=== PATIENT | female | born 2000 | race Caucasian/White ===

== ENCOUNTER → 2024-07-31 | Outpatient (CLI) | payer OTHER, SELFPAY ==
[2024-07-31 13:05] LABS: Absolute Lymphocyte Count 1.01 X10^3/uL (0.83-4.51); Absolute Neutrophil Count 7.7 X10^3/uL (2.0-7.7); Basophil# 0.02 X10^3/uL; Basophil% 0.2 % (0-1); Eosinophil# 0.03 X10^3/uL; Eosinophils% 0.3 % (0-5); Hematocrit 37.9 % (37-47); Hemoglobin 13.2 g/dL (12.0-15.0); Lymphocyte # 1.01 X10^3/ul (0.83-4.51); Lymphocyte % 10.8 % (19-41); Mean Corp Hgb Conc 34.8 g/dL (32-36); Mean Corpuscular Hgb 30.4 pg (27.0-32.0); Mean Corpuscular Volume 87.3 fL (81-99); Mean Platelet Vol. 11.3 fl (6.2-12.0); Monocyte# 0.58 X10^3/uL; Monocyte% 6.2 % (0-10); NRBC Flagged by Analyzer 0 % (0-5); Neutrophil # 7.72 X10^3/uL (2.7-7.7); Neutrophil % 82.2 % (47-70); Platelet Count 154 K/mm3 (150-450); RBC Distribution Width CV 11.7 % (11.6-14.6); RBC Distribution Width SD 37.4 fl (35.1-43.9); Red Blood Count 4.34 M/mm3 (4.2-5.4); White Blood Count 9.4 K/mm3 (4.4-11.0)
[2024-07-31 13:47] LABS: HIV Nonreactive (Nonreactive); Hepatitis B Surface Antigen Nonreactive (Nonreactive); Hepatitis C Antibody Nonreactive (Nonreactive); Rubella IgG REAC (Nonreactive); Syphilis Antibodies Nonreactive (Nonreactive)
== END | disposition home or self-care (01) ==
PROVIDERS: Referring Provider Advanced Practice Midwife; Visit Provider Advanced Practice Midwife
DX: Z34.81 Encounter for supervision of other normal pregnancy, first trimester (principal); E06.3 Autoimmune thyroiditis
CPT/HCPCS: 84439; 84443; 85025; 86703; 86762; 86780; 86803; 86850; 86900; 86901; 87086; 87340; 87491; 87591; 88175; G0145

== ENCOUNTER → 2024-10-06 | Outpatient (CLI) | payer SELFPAY, OTHER ==
--- NOTE | 2024-10-06 15:18 | US_ITS ---
PROCEDURE: OB ANATOMY W/ TRANSVAGINAL 10/06/2024 REASON FOR EXAM: ANATOMY/CERVICAL LENGTH TECHNIQUE: OB ANATOMY W/ TRANSVAGINAL COMPARISON: None FINDINGS Number: 1 Position: Breech Placental Position: Posterior and not low-lying. Placental Abnormalities: No evidence of previa.. Marginal cord insertion. The cord measures 2 cm away from the edge of the placenta. DIMENSIONS: Biparietal Diameter: 4.4 cm: 19 weeks and 3 days: 25 percentile/ Head Circumference: 16.6 cm: 19 weeks and 2 days: 15 percentile/ Abdominal Circumference: 13.9 cm: 19 weeks and 2 days: 23rd percentile/ Femur Length: 2.9 cm: 19 weeks and 0 days: 13 percentile/ ESTIMATED WEIGHT: 281 g plus/-42 g ESTIMATED WEIGHT PERCENTILE (24+ weeks): 12.5 percentile ESTIMATED GESTATIONAL AGE: Baseline: 20 weeks and 0 days By Ultrasound: 19 weeks and 3 days ESTIMATED DATE OF DELIVERY: Baseline: February 24, 2020 By Ultrasound: February 27, 2021 BIOPHYSICAL ASSESSMENT: Amniotic Fluid Volume: 3.8 cm Amniotic Fluid Index: Within normal range. (8-24 cm normal range) Cardiac Motion: 152 beats per minute (average) Trunk and Limb Motion: Present. MATERNAL ANATOMY: Adnexa: Neither maternal ovary is successfully identified. Cervical Length (if measured): 4.6 cm ANATOMY: Spine: Unremarkable Cranium: Unremarkable Cerebellum: Unremarkable Cisterna Magna: Unremarkable Cavum Septum Pellucidi: Unremarkable Lateral Ventricles: Unremarkable Choroid Plexus: Choroid plexus cyst with septation. Midline Falx: Unremarkable Nuchal Fold: Unremarkable Heart: Unremarkable Stomach: Unremarkable Kidneys: Unremarkable Bladder: Unremarkable Umbilical Cord: Marginal cord insertion. 2 cm from the end of the placenta. Extremities: Unremarkable US/OB Anatomy w/ Transvaginal IMPRESSION: Single live intrauterine gestation with a mean gestational age of 19 weeks and 3 days. Reading Location: [facility]
== END | disposition home or self-care (01) ==
LOC: US 15:17
PROVIDERS: PCP Nurse Practitioner Family; Referring Provider Obstetrics & Gynecology; Visit Provider Obstetrics & Gynecology
DX: Z34.01 Encounter for supervision of normal first pregnancy, first trimester (principal)
CPT/HCPCS: 76805; 76817

== ENCOUNTER → 2024-10-22 | Outpatient (CLI) | payer OTHER, SELFPAY | END | disposition home or self-care (01) | PROVIDERS: PCP Nurse Practitioner Family; Referring Provider Obstetrics & Gynecology; Visit Provider Obstetrics & Gynecology | DX: E06.3 Autoimmune thyroiditis (principal) | CPT/HCPCS: 36415; 84439; 84443 ==

== ENCOUNTER → 2024-11-19 | Outpatient (CLI) | payer OTHER, SELFPAY ==
[2024-11-19 12:16] LABS: Hematocrit 35.1 % (37-47); Hemoglobin 12.1 g/dL (12.0-15.0); Immature Granulocytes Count 0.020 X10^3/uL (0.0-0.0); Mean Corp Hgb Conc 34.5 g/dL (32-36); Mean Corpuscular Volume 89.3 fL (81-99); Mean Platelet Vol. 10.5 fl (6.2-12.0); NRBC Flagged by Analyzer 0 % (0-5); Platelet Count 173 K/mm3 (150-450); RBC Distribution Width CV 12.0 % (11.6-14.6); RBC Distribution Width SD 39.2 fl (35.1-43.9); Red Blood Count 3.93 M/mm3 (4.2-5.4); White Blood Count 8.3 K/mm3 (4.4-11.0)
[2024-11-19 13:17] LABS: Glucose Challenge Gest 1H 50g 153 mg/dL (70-140); HIV Nonreactive (Nonreactive); Syphilis Antibodies Nonreactive (Nonreactive)
== END | disposition home or self-care (01) ==
PROVIDERS: Obstetrics & Gynecology; PCP Nurse Practitioner Family; Visit Provider Nurse Practitioner Women's Health
DX: Z34.02 Encounter for supervision of normal first pregnancy, second trimester (principal); Z13.1 Encounter for screening for diabetes mellitus
CPT/HCPCS: 36415; 82950; 85025; 86703; 86780

== ENCOUNTER → 2024-11-21 | Outpatient (CLI) | payer OTHER, SELFPAY ==
[2024-11-21 09:47] LABS: Glucose GTT-Gestation. Fasting 74 mg/dL (<105)
[2024-11-21 12:51] LABS: Glucose GTT-Gestational 1 Hr 160 mg/dL (<190)
[2024-11-21 13:09] LABS: Glucose GTT-Gestational 2 Hr 194 mg/dL (<165)
[2024-11-21 13:57] LABS: Glucose GTT-Gestational 3 Hr 125 L (<145)
== END | disposition home or self-care (01) ==
PROVIDERS: PCP Nurse Practitioner Family; Referring Provider Nurse Practitioner Women's Health; Visit Provider Nurse Practitioner Women's Health
DX: O99.810 Abnormal glucose complicating pregnancy (principal); Z3A.00 Weeks of gestation of pregnancy not specified
CPT/HCPCS: 36415; 82951; 82952

== ENCOUNTER → 2025-01-28 | Outpatient (CLI) | payer SELFPAY, OTHER | END | disposition home or self-care (01) | LOC: LABSPEC 11:12 | PROVIDERS: PCP Nurse Practitioner Family; Visit Provider Obstetrics & Gynecology | DX: Z34.03 Encounter for supervision of normal first pregnancy, third trimester (principal) | CPT/HCPCS: 87081 ==

== ENCOUNTER 2025-02-16 08:15 | Inpatient (IN) | payer SELFPAY, OTHER ==
[2025-02-16] VITALS (21 sets, daily range): BP systolic 127–154; BP diastolic 66–92; PULSE 66–105; RESP 15–20; TEMP 36.3–36.9; O2SAT 97–99; BMI 37.9
[2025-02-16 08:14] LABS: ROM Internal Control Test YES-OK TO RESULT pt. (Internal QC)
[2025-02-16 08:15] LABS: ROM Patient Test POSITIVE (Negative)
[2025-02-16 08:16] LABS: Record Kit Lot#, ROM+ K3607
--- NOTE | 2025-02-16 08:18 | PCM.HP.OB ---
HPI - General General Date of Admission: 02/16/25 HPI Narrative MARIETTA OROZCO, is a 24 F at 39.0 weeks who presents to unit for SROM at 0500 for clear fluid. Lambert every 2-3 minutes palpating moderate. admission orders given Maternal Data Information SUZY Calculator Estimated Delivery Date Method Current WG Current Estimate 02/23/25 LMP (Certain) 39w 0d Other Estimates 02/27/25 Ultrasound #1 38w 3d PFSH PFSH Medical History Seasonal allergies Home Medications ?Medication ?Instructions ?Recorded ?Last Taken ?Type mv-mn 110-FA 180 mcg-om3 35 mg-dha tab PO 07/15/24 02/16/25 06:00 History 25 mg-epa 5 mg-fish oil chew tablet adrenal complex 1 cap PO QDAY 01/07/25 02/16/25 06:00 History black currant seed 1 cap PO QDAY 01/07/25 02/16/25 06:00 History Allergy/AdvReac Type Severity Reaction Status Date / Time No Known Allergies Allergy Verified 02/16/25 07:39 Family History Sister Thyroid disorder hyperactive Grandmother Thyroid disorder Maternal Family history of recurrent miscarriage Grandfather Heart murmur Maternal Surgical History Hx of appendectomy Social History adopted: No household members: spouse current occupational status: unemployed pets and animals: No history of recent travel: Yes ([place] & [place]) out of state: Yes out of country: No sexually active: Yes Smoking Status: Never smoker alcohol intake: current alcohol intake frequency: holidays/special occasions only details: Not while substance use type: does not use diet: lactose free well-balanced diet: daily or most days caffeine: No eating out: 1-3 times/week during the past year weight has: decreased > 10 lbs what type of physical activity do you participate in: walking frequency: 1-2 times per week duration: 15-30 minutes/day gurwinder/yazdanism: Buddhist seatbelt use: sometimes do you feel safe at home: Yes additional social history: Faizan History 1 Elective abortions Hx Para 0 Spontaneous abortions Hx # Term Pregnancies Ectopic pregnancies Hx # Pregnancies Multiple births # of living children Visit Details Expected Delivery Route/Plan Labor Preferences- CB/BF classes: yes labor support person: Faizan labor intervention preferences: [] pain management options preferred: hopes limited or nitrous cut cord/dad catch: cord : yes PP control planned: discussed discussed possible routes of delivery and associated risks: [] special requests: [] Plans Covid status: [] Flu vaccine: declines Tdap vaccine: declines Rhogam: NA LARC form signed: yes movement and labor precautions reviewed. Problem list reviewed and updated with the most current plan of care details and appropriate orders placed. Relevant counseling for the gestational age provided. Continue routine care and follow up unless otherwise noted in visit notes/problem list details OB Flowsheet Initial Weight: 156 lb Date <del>?</del> EGA Weight BP Urine Prot <del>?</del> Glucose FHR FuHt Pres Dilation <del>?</del> Effaced St Visit Note 07/31/24 <del>?</del> 10w 3d 156 lb 8 oz (+8 oz) 120/77 <del>?</del> 175 <del>?</del> KW- CRL cons with dates. accepts NIPT 08/27/24 <del>?</del> 14w 2d 160 lb 4 oz (+4 lb 4 oz) 114/75 Negative <del>?</del> Negative 150 <del>?</del> JV- nipt low risk and having a girl! nausea improving. wants [facility] ultrasound. 09/24/24 <del>?</del> 18w 2d 167 lb 4 oz (+11 lb 4 oz) 112/66 Negative <del>?</del> Negative 151 <del>?</del> MH-No VB. No flutters yet. Nausea resolved 10/22/24 <del>?</del> 22w 2d 174 lb 2 oz (+18 lb 2 oz) 112/70 Negative <del>?</del> Negative 144 <del>?</del> JV- repeat thyroid level needed today. no complaints. anatomy scan overall normal. is in the 12%, will likely keep an eye on fundal heights and repeat in 3rd trimester as needed. 11/19/24 <del>?</del> 26w 2d 182 lb 2 oz (+26 lb 2 oz) 121/75 Negative <del>?</del> Negative 145 25 <del>?</del> KW- no vb/lof/ctx. good fm. glucose today. discussed weight gain 12/03/24 <del>?</del> 28w 2d 188 lb 5 oz (+32 lb 5 oz) 101/61 Negative <del>?</del> Negative 140 28 <del>?</del> JV- normal tsh and 3 hr gtt. will rpt tsh closer to delivery. no complaints today. 12/24/24 <del>?</del> 31w 2d 198 lb 2 oz (+42 lb 2 oz) 120/76 Negative <del>?</del> Negative 135 31 <del>?</del> KW- no vb/lof/ctx. good fm. no concerns 01/07/25 <del>?</del> 33w 2d 203 lb (+47 lb) 115/76 Negative <del>?</del> Negative 158 33 <del>?</del> MH-No VB, LOF. Good FM. Larc 01/21/25 <del>?</del> 35w 2d 209 lb 8 oz (+53 lb 8 oz) 127/80 Negative <del>?</del> Negative 145 34 Cephalic <del>?</del> SM- no vb lof good fm n oreuglar ctx nausea resolved 01/28/25 <del>?</del> 36w 2d 213 lb 9 oz (+57 lb 9 oz) 118/81 Negative <del>?</del> Negative 150 36 Cephalic 0.5 <del>?</del> SM- no vb lof good fm n oregular ctx gbs collected 02/02/25 <del>?</del> 37w 0d 217 lb 2 oz (+61 lb 2 oz) 129/83 Negative <del>?</del> Negative 150 37 <del>?</del> KW- no vb/lof/ctx. good fm. declines vaginal exam. 02/09/25 <del>?</del> 38w 0d 224 lb 3 oz (+68 lb 3 oz) 131/85 Negative <del>?</del> Negative 145 37 Cephalic <del>?</del> KW- no vb/lof/ctx. good fm. declines vaginal exam NST FHR Rate Baby A Baseline: 145 Variability:: Moderate Accelerations:: 15 x 15 Decelerations:: None NST Reactive:: Yes FHR Category:: Category I Uterine Activity:: 2-3 ROS Constitutional Constitutional: Denies change in weight, fatigue, fever(s), headache(s), poor appetite or weakness Eyes Eyes: Denies blurry vision, change in vision, floaters, seeing flashes or spots in vision ENT HEENT: Denies dizziness, headache(s), loss taste/smell or sore throat Cardiovascular Cardiovascular: Denies chest pain, dizziness, dyspnea, irregular heart rhythm, lightheadedness, palpitations or rapid heart rate Respiratory/Chest Respiratory/Chest: Denies change in mental status, chest tightness, cough, dyspnea or breast pain Gastrointestinal Gastrointestinal: Denies anorexia, chewing difficulty, constipation, diarrhea or weight changes Genitourinary Genitourinary: Denies difficulty urinating, dysuria, flank pain, genital pain, urinary frequency or urinary urgency Musculoskeletal Musculoskeletal: Denies back pain, difficulty walking, extremity pain, joint pain, muscle cramps or muscle weakness Integumentary Integumentary: Denies lesions or unusual bruising Neurologic Neurologic: Denies abnormal movements, abnormal speech, dizziness, numbness, seizure-like activity, syncope or weakness Psychiatric Psychiatric: Denies behavioral changes, change in appetite, confusion, depression, homicidal ideation, suicidal ideation or suicidal thoughts Endocrine Endocrinology: Denies excessive sweating, polydipsia or polyuria Hematologic/Lymphatic Hematologic/Lymphatic: Denies anemia Allergic/Immunologic Allergic/Immunologic: Denies itchy eyes, lip swelling, throat swelling, tongue swelling or wheezing Vital Signs Vital Signs Vital Signs: 02/16/25 07:42 02/16/25 07:42 02/16/25 07:42 Temperature Temperature Source Temporal Pulse Rate Respiratory Rate 18 Blood Pressure BP Systolic BP Diastolic Pulse Ox 97 02/16/25 07:42 02/16/25 07:44 02/16/25 07:44 Temperature 98.3 F Temperature Source Pulse Rate 100 Respiratory Rate Blood Pressure 130/76 H BP Systolic 130 BP Diastolic 76 Pulse Ox Weight Weight: 221 lb Body Mass Index (BMI) 37.9 Physical Exam Const alert, oriented x3 and no apparent distress General Appearance: cooperative Orientation / Consciousness: awake HEENT normocephalic Neck full ROM Lymph Lymphatic: no lymphadenopathy noted Chest inspection of chest normal Resp normal respiratory effort and normal air movement Effort and Inspection: able to speak in complete sentences and symmetric chest movement GI soft to palpation and non-tender Inspection: gravid Palpation: soft; Negative for tender external exam normal Back/Spine normal to inspection Extremity normal to inspection and full ROM Skin no rashes or lesions noted Psych mental status grossly normal Appearance: grossly normal Speech: normal speech Labs Labs Labs: Blood Type O POSITIVE Antibody Screen NEGATIVE Hct, (37-47) 35.1 % L Hgb, (12.0-15.0) 12.1 g/dL Obstetrics Ultrasound Syphilis Total Ab, (Nonreactive) Nonreactive Rubella IgG Antibody, (Nonreactive) REAC Hep Bs Antigen, (Nonreactive) Nonreactive Hepatitis C Antibody, (Nonreactive) Nonreactive Chlamydia DNA (JOSLYN), (Negative) Negative N.gonorrhoeae DNA (JOSLYN), (Negative) Negative HIV 1&2 Antibody, (Nonreactive) Nonreactive Glucose 1 Hr 50 gm, (70-140) 153 mg/dL H Gest Glucose Tolerance mg/dL Miscellaneous Test Pending Assessment & Plan (1) SROM (spontaneous rupture of membranes): PLAN: Patient presents IAL, plan expectant management for , pitocin/AROM PRN if needed. Pain management: plans no epidural. GBS neg. Management of any complications: none I have reviewed the [facility] and made any clinically relevant updates. Dr Riggs aware of assessment, plan and admission. agrees with above plan (2) Abnormal glucose affecting : COMMENT: normal 3hr gtt (3) Lois's disease: COMMENT: Pt saw Retail Selling Specialist due to irregular menses and weight gain, has been taking natural supplements and had regular menses for 5 months.neg tsh receptor ab and nl labs this pregnacy (4) Supervision of normal first : QUALIFIERS: Trimester: third trimester Qualified Code(s): Z34.03 - Encounter for supervision of normal first , third trimester COMMENT: PRR , SUZY 02/23/25, girl Faizan (5) : QUALIFIERS: Weeks of gestation: 38 weeks Qualified Code(s): Z3A.38 - 38 weeks gestation of COMMENT: GBS neg, nipt LR. Declined carrier and AFP Charges/Coding Multi Select Codes Urinary/Genital Urinary/Genital CPT Codes: No Charge
[2025-02-16 09:31] LABS: Hematocrit 35.3 % (37-47); Hemoglobin 11.8 g/dL (12.0-15.0); Immature Granulocytes Count 0.060 X10^3/uL (0.0-0.0); Mean Corp Hgb Conc 33.4 g/dL (32-36); Mean Corpuscular Volume 85.5 fL (81-99); Mean Platelet Vol. 11.5 fl (6.2-12.0); NRBC Flagged by Analyzer 0 % (0-5); Platelet Count 228 K/mm3 (150-450); RBC Distribution Width CV 12.6 % (11.6-14.6); RBC Distribution Width SD 38.8 fl (35.1-43.9); Red Blood Count 4.13 M/mm3 (4.2-5.4); White Blood Count 13.5 K/mm3 (4.4-11.0)
[2025-02-16 10:07] LABS: Syphilis Antibodies Nonreactive (Nonreactive)
[2025-02-16 10:37] LABS: AST(SGOT) 26 U/L (<=31); Alanine Aminotransfer ALT/SGPT 13 U/L (<=34); Estimated Creatinine Clearance 179.85 ml/min (50-250); Uric Acid 7.4 mg/dL (2.6-6.0)
[2025-02-16 11:03] LABS: Creatinine, Urine (random) 23.60 mg/dL (28.00-217.00); Protein, Urine (Random) 14.2 mg/dL (0.0-12.0); Protein:Creat Ratio 602 mg/g CRE (0-200)
--- NOTE | 2025-02-16 12:19 | PCM.PN.BLA ---
Progress Note Coping well with contractions current tracing: FHT: 140 Moderate variability reactive no decelerations category I tracing [place] Walk: 2-3 minute Contractions Membranes: ruptured- remains clear. additional bag ruptured at 1220 for clear SVE: reviewed tracing since last note: in person collaboration with Dr Riggs at this time for patient update, Cat 1 A/P: Continue with position changes Titrate pitocin per protocol Epidural per anesthesia GBS neg Anticipate Dr Riggs aware of above assessment and agrees with plan of care Assessment & Plan Assessment/Plan (1) SROM (spontaneous rupture of membranes): (2) Abnormal glucose affecting : (3) Lois's disease: (4) Supervision of normal first : QUALIFIERS: Trimester: third trimester Qualified Code(s): Z34.03 - Encounter for supervision of normal first , third trimester (5) : QUALIFIERS: Weeks of gestation: 38 weeks Qualified Code(s): Z3A.38 - 38 weeks gestation of Multi Select Codes Urinary/Genital Urinary/Genital CPT Codes: No Charge
[2025-02-16] MEDS: Lactated Ringers 1,000 ML 999 ML IV (14:08)
[2025-02-16] MEDS: Oxytocin 15 Units/NS 250ml 15 UNITS/250 ML IV.SOLN 334 UNITS IV (14:35)
[2025-02-16] MEDS: Lidocaine 1% (20 ml mdv) 20 ML Vial INFILT (14:41)
[2025-02-16] MEDS: Oxytocin 15 Units/NS 250ml 15 UNITS/250 ML IV.SOLN 83 UNITS IV (15:05)
--- NOTE | 2025-02-16 15:08 | EX.PCM.OBVAG ---
Assessment & Plan (1) Vaginal delivery: COMMENT: KW IAL Girl Digna (2) SROM (spontaneous rupture of membranes): (3) Abnormal glucose affecting : COMMENT: normal 3hr gtt (4) Lois's disease: COMMENT: Pt saw Rand Butter due to irregular menses and weight gain, has been taking natural supplements and had regular menses for 5 months.neg tsh receptor ab and nl labs this pregnacy (5) Supervision of normal first : QUALIFIERS: Trimester: third trimester Qualified Code(s): Z34.03 - Encounter for supervision of normal first , third trimester COMMENT: PRR , SUZY 02/23/25, girl Faizan (6) : QUALIFIERS: Weeks of gestation: 38 weeks Qualified Code(s): Z3A.38 - 38 weeks gestation of COMMENT: GBS neg, nipt LR. Declined carrier and AFP Maternal Data Information SUZY Calculator Estimated Delivery Date Method Current WG Current Estimate 02/23/25 LMP (Certain) 39w 0d Other Estimates 02/27/25 Ultrasound #1 38w 3d Final SUZY: 02/23/25 Final SUZY Source: US >20 weeks Gestational age: 39.0 Vaginal Delivery Maternal Presentation Maternal Presentation: Spontaneous Rupture of Membranes Maternal Presentation: Presented to unit for active labor/SROM at 39.0 weeks Vaginal Delivery Information Procedure Performed: Spontaneous Vaginal Delivery Surgeon/Practitioner: Sophie Pooel Date of Procedure: 02/16/25 Pre-Procedure Diagnosis: see problem list Post-Procedure Diagnosis: same Type of anesthesia: Local with 1% Lidocaine Estimated Blood Loss: 400 Time of Delivery: 14:27 Findings Description of procedure: Progressed well to 10cm dilated and made steady progress with effective maternal pushing. Delivered the head in PRAVEEN presentation. The head was delivered atraumatically and no nuchal cord was identified. The anterior and posterior shoulders delivered without complication followed by the rest of the and the was placed on the maternal abdomen. Delayed cord clamping was employed for approximately 3 minutes. Cord was clamped and cut and gentle traction was applied to the cord and the placenta delivered spontaneously. Immediately following, it was noted to be intact with a 3 vessel cord. Uterine bleeding brisk and IM Methergine given. The perineum and vagina were inspected and noted to have a second degree laceration which was repaired with 3-0 Vicryl in the usual fashion. EBL was 400cc. Patient and tolerated delivery well. Apgars 8/9. Dr Riggs notified of vaginal delivery and orders reviewed. Physician agrees with current plan of care. Presentation: Vertex Amniotic Membrane Rupture Type: Spontaneous Amniotic Fluid Description: Clear Placental Delivery Description: Spontaneous Placenta Disposition: [facility] Specimen collected: No Cord Vessel Description: 3 Vessels Cord Entanglement: None A Gender: Female (1 minute): 8 (5 minute): 9 Delayed Cord Clamping: Yes Commercial Development Manager tube winder: No Post Vaginal Deli Medications given after delivery: IV Pitocin and IM Methergin Episiotomy Description: None Laceration: 2nd degree Complication Complications: No Multi Select Codes Urinary/Genital Urinary/Genital CPT Codes: 45964 Vaginal Delivery [facility]
--- NOTE | 2025-02-16 15:12 | DCINST_ITS ---
Discharge Instructions
--- NOTE | 2025-02-16 15:12 | PCM.DC ---
Discharge Instructions DC O2, CPAP, BIPAP needs Home O2 Discharge instructions: No Dressing / Incision Discharge Activity: Return to Normal Activity May resume sexual activity in: 6-8 weeks Dressing / Incision Call your doctor if you observe: Fever of 101 or Higher, Coldness, Increased Pain, Numbness or Tingling, Change in Color, Inability to urinate, Inability to have a bowel movement, Using more than 1 pad per hour, Shortness of breath, Dizziness, Fainting spells, Swelling in the ankles, Chest pain, Increased palpitations (irregular heartbeat), Calf discomfort and Uncontrolled pain Follow Up Care Please Follow Up With: Sophie Poole CNM When: Please call the office to schedule your follow up appointment in 6 weeks. If you had high blood pressure please call to schedule an appointment in 2 weeks. Test Results: Test results from this visit will be discussed in further detail at your follow-up appointment, if applicable. Discharge Plan Admission Admit Date/Time: 02/16/25 08:15 Attending Provider: Sophie Poole Primary Care Provider: Ivania Simpson NP Discharge Orders/Prescriptions Prescriptions: No Action mv-mn [id number] 180 mcg-35 mg- 25 mg-5 mg tablet,chewable PO adrenal complex 1 cap PO QDAY black currant seed 1 cap PO QDAY Referrals / Follow Up: Ivania Simpson NP, [facility] [Primary Care Provider, Medical]
--- NOTE | 2025-02-16 17:48 | NURSING ---
pt showered and back to bed
[2025-02-17] VITALS (9 sets, daily range): BP systolic 120–132; BP diastolic 64–80; PULSE 83–114; RESP 16; TEMP 36.6–36.8; O2SAT 99
--- NOTE | 2025-02-17 08:23 | PCM.PN.OB ---
Subjective Subjective Patient doing well without complaints. Tolerating PO. Ambulating and voiding without difficulty. Feeding well. Denies chest pain, shortness of breath, calf pain/swelling, fevers, chills, lightheadedness. Objective Data Objective Data Vital Signs: Vital Signs Temp Pulse Resp BP Pulse Ox O2 Del Method 98.2 F 114 H 16 131/80 H 99 Room Air 02/17/25 07:45 02/17/25 07:45 02/17/25 07:45 02/17/25 07:45 02/17/25 04:22 02/17/25 04:22 Oxygen Delivery Method Room Air Weight: 221 lb Body Mass Index (BMI) 37.9 Intake & Output: Intake and Output for Last 24 Hours 02/15/25 02/16/25 02/17/25 22:59 23:59 23:59 Intake Total 866.55 / 866.55 Output Total 800 / 800 Balance 66.55 / 66.55 Lab / Micro Data 02/16/25 09:00 02/16/25 09:00 Labs: Laboratory Results - last 24 hr 02/16/25 09:00: WBC 13.5 H, RBC 4.13 L, Hgb 11.8 L, Hct 35.3 L, MCV 85.5, MCH 28.6, MCHC 33.4, RDW Std Deviation 38.8, RDW Coeff of Lexii 12.6, Plt Count 228, MPV 11.5, Immature Gran % (Auto) 0.400, Neut % (Auto) 80.3 H, Lymph % (Auto) 9.9 L, [place] % (Auto) 7.8, Eos % (Auto) 1.3, Baso % (Auto) 0.3, Absolute Neuts (auto) 10.8 H, Absolute Lymphs (auto) 1.34, Nucleated RBC % 0, Creatinine 0.56 L, Estim Creat Clear Calc 179.85, Est GFR (MDRD) Non-Af 131, Uric Acid 7.4 H, AST 26, ALT 13, Syphilis Total Ab Nonreactive, Blood Type O POSITIVE, Antibody Screen NEGATIVE 02/16/25 10:15: U Random Total Protein 14.2 H, Urine Creatinine 23.60 L, Protein/Creatinin Ratio 602 H ROS Constitutional Constitutional: Denies chills, fatigue, fever(s), poor appetite or weakness Eyes Eyes: Denies blurry vision, change in vision, seeing flashes or spots in vision ENT HEENT: Denies dizziness, headache(s), loss taste/smell or sore throat Cardiovascular Cardiovascular: Denies chest pain, dizziness, dyspnea, irregular heart rhythm, palpitations or rapid heart rate Respiratory/Chest Respiratory/Chest: Denies chest tightness, cough, dyspnea or breast pain Gastrointestinal Gastrointestinal: Denies abdominal pain, constipation or vomiting Genitourinary Genitourinary: Denies dysuria or flank pain Musculoskeletal Musculoskeletal: Denies difficulty walking, joint pain, limited range of motion or numbness Neurologic Neurologic: Denies abnormal movements, abnormal speech, dizziness, numbness, seizure-like activity or syncope Psychiatric Psychiatric: Denies anxiety, behavioral changes, change in appetite, confusion, depression or suicidal thoughts Physical Exam Const alert, oriented x3 and no apparent distress General Appearance: cooperative and comfortable Resp normal respiratory effort Cardio regular rate GI normal to inspection, nondistended, normoactive bowel sounds GI Narrative: uterus is firm below umbilicus Palpation: soft Back/Spine no CVA tenderness and thoraco-lumbar ROM normal Extremity normal to inspection, no clubbing, cyanosis or edema, no calf tenderness and no pedal edema Psych mental status grossly normal, thought process normal, cooperative, affect normal, speech normal, activity/motor behavior normal, denies homicidal ideation and denies suicidal ideation Assessment & Plan (1) Vaginal delivery: COMMENT: KW IAL Girl Digna PLAN: Plan s/p PPD # 1 1. routine post delivery care 2. breast feeding- support given 3. rh positive 4. rubella immune
== END 2025-02-17 17:40 | disposition home or self-care (01) | DRG 807 ==
LOC: WPOUT 08:21 → WP 08:22
PROVIDERS: Admitting Provider Advanced Practice Midwife; PCP Nurse Practitioner Family; Referring Provider Advanced Practice Midwife; Visit Provider Advanced Practice Midwife
DX: O42.02 Full-term premature rupture of membranes, onset of labor within 24 hours of rupture (principal); Z37.0 Single live birth; E06.3 Autoimmune thyroiditis; O99.284 Endocrine, nutritional and metabolic diseases complicating childbirth; O70.1 Second degree perineal laceration during delivery; Z3A.39 39 weeks gestation of pregnancy
CPT/HCPCS: 59025; 59050; 82565; 82570; 84112; 84156; 84450; 84460; 84550; 85025; 86780; 86850; 86900; 86901; 99221; G0378